=== PATIENT | female | born 1960 | race Caucasian/White ===

== ENCOUNTER 2018-02-17 07:46 | Outpatient (CLI) | payer BC ==
--- NOTE | 2018-02-17 12:46 | MRI ---
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 Strong family history of breast canc er. BRCA I gene mutation positive. Comparison: Mammogram study, 02-17-18, 02-13-17 FINDINGS: The breast tissue shows scattered fibroglandular change. No evidence of any suspicious mass demonstra alexandru. No areas of abnormal contrast enhancement noted. No skin thickening or other ancillary findings. IMPRESSION: BIRADS category 2 - benign findings. Given patient's strong history, consideration for an annual foll ow up MRI for better establishment of baseline change. POS: MAYELIN
== END 2018-02-17 07:47 | disposition home or self-care (01) ==
LOC: BICMAMMO 07:46
PROVIDERS: ATTEND Physician Assistant
DX: Z12.31 Encounter for screening mammogram for malignant neoplasm of breast (principal); Z15.01 Genetic susceptibility to malignant neoplasm of breast; R92.1 Mammographic calcification found on diagnostic imaging of breast; Z80.3 Family history of malignant neoplasm of breast
CPT/HCPCS: 77063; 77067; C8908

== ENCOUNTER 2019-02-25 07:43 | Outpatient (CLI) | payer BC ==
--- NOTE | 2019-02-25 08:31 | MMO ---
Bilateral MAMMO Bilat Screen [facility]. CLINICAL HISTORY: Patient is 58 years old and is seen for screening. The patient has no personal history of cancer. VIEWS: The views performed were: bilateral craniocaudal with tomosynthesis and bilateral mediolateral oblique with tomosynthesis. FILMS COMPARED: The present examination has been compared to prior imaging studies performed at [facility] on 01/04/2015, 01/08/2016, 02/13/2017 and 02/17/2018. This study has been interpreted with the assistance of computer-aided detection. MAMMOGRAM FINDINGS: There are scattered fibroglandular densities. There are no suspicious masses, suspicious calcifications, or new areas of architectural distortion. IMPRESSION: THERE IS NO MAMMOGRAPHIC EVIDENCE OF MALIGNANCY. A ROUTINE FOLLOW-UP MAMMOGRAM IN 1 YEAR IS RECOMMENDED. THE RESULTS OF THIS EXAM WERE SENT TO THE PATIENT. ACR BI-RADS Category 1 - Negative MAMMOGRAPHY NOTE: 1. A negative mammogram report should not delay a biopsy if a dominant of clinically suspicious mass is present. 2. Approximately 10% to 15% of breast cancers are not detected by mammography. 3. Adenosis and dense breasts may obscure an underlying neoplasm. Reported by: ULISSES KAN MD Electonically Signed: [id number]
== END 2019-02-25 07:44 | disposition home or self-care (01) ==
LOC: BICMAMMO 07:43
PROVIDERS: ATTEND Internal Medicine Hematology & Oncology
DX: Z12.31 Encounter for screening mammogram for malignant neoplasm of breast (principal)
CPT/HCPCS: 77063; 77067

== ENCOUNTER 2019-08-27 07:34 | Outpatient (CLI) | payer BC ==
[2019-08-27 08:31] LABS: Estimated GFR-MDRD - POC Greater than 90
--- NOTE | 2019-08-27 10:42 | MRI ---
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 Strong family history of breast cancer. BRCA1 gene mutation positive. COMPARISON: Breast MRI of 02/17/2018. CORRELATION: Mammograms of 02/25/2019. FINDINGS: There are scattered fibroglandular tissues. No evidence of suspicious mass or abnormal postcontrast e nhancement is seen. No skin thickening or axillary or internal mammary lymphadenopathy is identified. IMPRESSION: BIRADS Category 2 - Benign findings. Annual follow-up MRI and mammography should be considered. POS: TANVIR
== END 2019-08-27 07:35 | disposition home or self-care (01) ==
LOC: BICMRI 07:34
PROVIDERS: ATTEND Internal Medicine Hematology & Oncology
DX: Z15.01 Genetic susceptibility to malignant neoplasm of breast (principal)
CPT/HCPCS: 82565; A9577; C8908

== ENCOUNTER 2020-02-28 07:43 | Outpatient (CLI) | payer BC ==
--- NOTE | 2020-02-28 08:37 | MMO ---
Bilateral MAMMO Bilat Screen [facility]. CLINICAL HISTORY: Patient is 59 years old and is seen for screening. The patient has no personal history of cancer. VIEWS: The views performed were: bilateral craniocaudal with tomosynthesis and bilateral mediolateral oblique with tomosynthesis. FILMS COMPARED: The present examination has been compared to prior imaging studies performed at [facility] on 02/13/2017, 02/17/2018, 02/25/2019 and 08/27/2019. This study has been interpreted with the assistance of computer-aided detection. MAMMOGRAM FINDINGS: There are scattered fibroglandular densities. There are no suspicious masses, suspicious calcifications, or new areas of architectural distortion. IMPRESSION: THERE IS NO MAMMOGRAPHIC EVIDENCE OF MALIGNANCY. A ROUTINE FOLLOW-UP MAMMOGRAM IN 1 YEAR IS RECOMMENDED. THE RESULTS OF THIS EXAM WERE SENT TO THE PATIENT. ACR BI-RADS Category 1 - Negative MAMMOGRAPHY NOTE: 1. A negative mammogram report should not delay a biopsy if a dominant of clinically suspicious mass is present. 2. Approximately 10% to 15% of breast cancers are not detected by mammography. 3. Adenosis and dense breasts may obscure an underlying neoplasm. Reported by: ULISSES KAN MD Electonically Signed: [id number]
== END 2020-02-28 07:44 | disposition home or self-care (01) ==
LOC: BICMAMMO 07:43
PROVIDERS: ATTEND Internal Medicine Hematology & Oncology
DX: Z12.31 Encounter for screening mammogram for malignant neoplasm of breast (principal)
CPT/HCPCS: 77063; 77067

== ENCOUNTER 2020-08-28 07:13 | Outpatient (CLI) | payer BC ==
[2020-08-28 08:18] LABS: Estimated GFR-MDRD - POC Greater than 90
== END 2020-08-28 07:14 | disposition home or self-care (01) ==
LOC: BICMRI 07:13
PROVIDERS: ATTEND Internal Medicine Hematology & Oncology
DX: Z15.01 Genetic susceptibility to malignant neoplasm of breast (principal); N63.24 Unspecified lump in the left breast, lower inner quadrant
CPT/HCPCS: 82565; A9577; C8908

== ENCOUNTER 2020-09-01 06:48 | Outpatient (CLI) | payer BC | END 2020-09-01 06:49 | disposition home or self-care (01) | LOC: BICULT 06:48 | PROVIDERS: ATTEND Internal Medicine Hematology & Oncology | DX: Z15.01 Genetic susceptibility to malignant neoplasm of breast (principal); N63.25 Unspecified lump in the left breast, overlapping quadrants; R92.8 Other abnormal and inconclusive findings on diagnostic imaging of breast | CPT/HCPCS: 19083; 88305; 88341; 88342; G0279 ==

== ENCOUNTER 2020-09-18 09:19 | Outpatient (CLI) | payer BC ==
[2020-09-18 12:42] LABS: Anion Gap 18 mmol/L (10-20); BUN (Urea Nitrogen) 14 mg/dL (9.8-20.1); Calc. Creatinine Clearance 0 mL/min (70-130); Calcium 9.3 mg/dL (7.8-10.44); Carbon Dioxide 22 mmol/L (22-29); Chloride 104 mmol/L (98-107); Glucose 77 mg/dL (70-105); Potassium 4.5 mmol/L (3.5-5.1); Sodium 139 mmol/L (136-145)
[2020-09-18 18:29] LABS: SARS-CoV-2 PCR by NAA Not Detected (NotDetected)
== END 2020-09-18 09:20 | disposition home or self-care (01) ==
LOC: LABBT 09:19
PROVIDERS: ATTEND Surgery
DX: Z01.818 Encounter for other preprocedural examination (principal); C50.919 Malignant neoplasm of unspecified site of unspecified female breast; Z20.822 Contact with and (suspected) exposure to COVID-19
CPT/HCPCS: 80048; 80053; 82248; 83615; 84100; 84550; 87635; 93005; 93010; U0003; U0005

== ENCOUNTER 2020-09-20 11:44 | Day surgery (SDC) | payer BC ==
[2020-09-20] MEDS ORDERED: EPINEPHrine 1 MG/ML AMP ONE (13:58)
[2020-09-20] MEDS ORDERED: Bupivacaine 0.25% HCL 30 ML VIAL ONE (13:58)
[2020-09-20] MEDS ORDERED: PROPOFOL 40 ML ONE (14:07)
[2020-09-20] MEDS ORDERED: Fentanyl 100 MCG/2 ML VIAL ONE (14:07)
[2020-09-20] MEDS ORDERED: PHENYLEPHRINE-NS 100 MCG/ML 10 ML SYRINGE ONE (14:22)
[2020-09-20] MEDS ORDERED: PROPOFOL 200 MG/20 ML VIAL ONE (14:22)
[2020-09-20] MEDS ORDERED: HYDROcodone/Acetaminophen 5/325 mg Tablet ONE (15:09)
== END 2020-09-20 16:19 | disposition home or self-care (01) ==
LOC: SDC 11:44
PROVIDERS: ATTEND Surgery
PROC: 02HV33Z Insertion of Infusion Device into Superior Vena Cava, Percutaneous Approach (ICD-10-PCS; principal; 2020-09-20)
DX: C50.912 Malignant neoplasm of unspecified site of left female breast (principal); I10 Essential (primary) hypertension; E78.5 Hyperlipidemia, unspecified; J44.9 Chronic obstructive pulmonary disease, unspecified; K21.9 Gastro-esophageal reflux disease without esophagitis; F17.210 Nicotine dependence, cigarettes, uncomplicated; M81.0 Age-related osteoporosis without current pathological fracture; Z79.899 Other long term (current) drug therapy; Z88.6 Allergy status to analgesic agent; Z88.8 Allergy status to other drugs, medicaments and biological substances; Z91.048 Other nonmedicinal substance allergy status
CPT/HCPCS: 71045; C1788; J0171; J0690; J1642; J2704; J3010; S0020

== ENCOUNTER 2020-09-22 12:11 | Outpatient (CLI) | payer BC | END 2020-09-22 12:12 | disposition home or self-care (01) | LOC: ULT 12:11 | PROVIDERS: ATTEND Internal Medicine Hematology & Oncology | DX: Z51.11 Encounter for antineoplastic chemotherapy (principal); C50.212 Malignant neoplasm of upper-inner quadrant of left female breast; Z79.899 Other long term (current) drug therapy | CPT/HCPCS: 93306 ==